=== PATIENT | female | born 1960 | race African-American/Black ===

== ENCOUNTER 2019-02-22 17:20 | Emergency (ER) | payer BC ==
[~2019-02-22] VITALS: Ht 160 cm; Wt 100.2 kg
[2019-02-22] MEDS ORDERED: BREO ELLIPTA 11 EACH INH (17:32)
[2019-02-22] MEDS ORDERED: PROAIR RESPICL90 MCG PO (17:32)
[2019-02-22] MEDS ORDERED: ALBUTEROL2.5 MG/31 INH (17:33)
[2019-02-22] MEDS ORDERED: PULMICORT0.5 MG/2 M INH (17:33)
[2019-02-22] MEDS ORDERED: FLONASE 0.05%50 MCG NASAL (17:34)
[2019-02-22] MEDS ORDERED: ASPIR 8181 MG PO (17:34)
[2019-02-22] MEDS ORDERED: KLOR-CON 1010 MEQ PO (17:34)
[2019-02-22] MEDS ORDERED: ZOCOR20 MG PO (17:34)
[2019-02-22] MEDS ORDERED: SINGULAIR 10 MG10 M1 PO (17:34)
[2019-02-22] MEDS ORDERED: IRON325 PO (17:35)
[2019-02-22] MEDS ORDERED: AMLODIPINE BESY10 MG PO (17:35)
[2019-02-22] MEDS ORDERED: DIOVAN160 MG PO (17:35)
[2019-02-22] MEDS ORDERED: LASIX 20 MG TAB20 MG PO (17:35)
[2019-02-22] MEDS ORDERED: PROTONIX40 M1 PO (17:35)
[2019-02-22] MEDS ORDERED: VITAMIN B-1250 MC2 PO (17:37)
[2019-02-22] MEDS ORDERED: BIOTIN1000 MCG PO (17:37)
[2019-02-22] MEDS ORDERED: VITAMINC500 PO (17:38)
[2019-02-22] MEDS ORDERED: VITAMIN D1000 UNI1 PO (17:38)
[2019-02-22] MEDS ORDERED: CALCIUM CARBON600 MG PO (17:39)
[2019-02-22] MEDS ORDERED: VITAMIN E1000 UNIT PO (17:39)
[2019-02-22] MEDS ORDERED: FISH OIL 1,001000 M2 PO (17:39)
[2019-02-22] MEDS ORDERED: IBUPROFEN 200200 M1 PO (17:40)
[2019-02-22] MEDS ORDERED: AZESCO TABLET1 EACH PO (17:40)
[2019-02-22] MEDS ORDERED: EXCEDRIN CAPLE1 EACH PO (17:40)
[2019-02-22 18:14] LABS: ABSOLUTE NEUTROPHILS 4.1 thou/uL (1.4-8.2); BASOPHILS 0.8 % (0.0-2.0); EOSINOPHILS 2.6 % (0.0-3.0); HEMATOCRIT 41.9 % (37.0-47.0); HEMOGLOBIN 14.2 gm/dL (12.0-15.0); LYMPHOCYTES 37.2 % (24.0-44.0); MCH 28.6 pg (26.0-34.0); MCHC 33.9 g/dL (28.0-37.0); MCV 84.4 fL (80.0-100.0); PLATELET COUNT 256 thou/uL (150-400); POLYS 50.4 % (36.0-66.0); RBC 4.97 mil/uL (4.20-5.00); RDW 13.3 % (10.5-14.5); WBC 8.2 thou/uL (4.0-11.0)
[2019-02-22 18:26] LABS: CALCIUM 9.5 mg/dL (8.5-10.1); POTASSIUM 3.9 mmol/L (3.5-5.1)
[2019-02-22 18:32] LABS: ALBUMIN 4.5 g/dL (3.4-5.0); TOTAL BILIRUBIN 0.3 mg/dL (<0.1-1.0); TOTAL PROTEIN 7.8 g/dL (6.4-8.2)
[2019-02-22 19:09] LABS: URINE BILIRUBIN NEGATIVE (Negative); URINE BLOOD 2+ (Negative); URINE CLARITY CLEAR; URINE COLOR YELLOW; URINE GLUCOSE-RANDOM* NEGATIVE (Negative); URINE KETONES NEGATIVE (Negative); URINE NITRITE-REFLEX NEGATIVE (Negative); URINE PROTEIN (DIPSTICK) NEGATIVE (Negative); URINE UROBILINOGEN 0.2 E.U./dl (0.2-1.0)
[2019-02-22 19:11] LABS: URINE LEUKOCYTES-REFLEX 1+ (Negative)
[2019-02-22 19:20] LABS: BACTERIA-REFLEX None Seen /HPF (None Seen); CASTS None Seen /LPF (None Seen); CRYSTALS None Seen /LPF (None Seen); MUCUS 0-3 Light strn/LPF (None Seen); SQUAMOUS 4-10 Moderate /LPF (0-3); URINE RBC 3-10 Few /HPF (0-2); URINE WBC-REFLEX 6-15 Few /HPF (0-5)
[2019-02-22] MEDS ORDERED: PREDNISONE 10 M10 MG PO (19:38)
[2019-02-22] MEDS ORDERED: NORFLEX100 MG PO (19:38)
[2019-02-22] MEDS ORDERED: ULTRAM 50MG TAB50 MG PO ×2 (19:51→19:52)
[2019-02-22 21:25] VITALS: BP 142/86
== END 2019-02-22 21:25 | disposition home or self-care (01) ==
LOC: ER 17:20
PROVIDERS: Physician Assistant
DX: S39.011A Strain of muscle, fascia and tendon of abdomen, initial encounter (principal); M65.28 Calcific tendinitis, other site; I10 Essential (primary) hypertension; K21.9 Gastro-esophageal reflux disease without esophagitis; G47.30 Sleep apnea, unspecified; Z88.6 Allergy status to analgesic agent; Z88.5 Allergy status to narcotic agent; X50.0XXA Overexertion from strenuous movement or load, initial encounter; Y92.89 Other specified places as the place of occurrence of the external cause; Y93.89 Activity, other specified; Y99.8 Other external cause status

== ENCOUNTER 2020-12-20 14:30 | Emergency (ER) | payer BC ==
[~2020-12-20] VITALS: Ht 160 cm; Wt 100.2 kg
[~2020-12-20 14:30] MED LIST: ALBUTEROL2.5 MG/31 INH; AMLODIPINE BESY10 MG PO; ASPIR 8181 MG PO; AZESCO TABLET1 EACH PO; BIOTIN1000 MCG PO; BREO ELLIPTA 11 EACH INH; CALCIUM CARBON600 MG PO; DIOVAN160 MG PO; EXCEDRIN CAPLE1 EACH PO; FISH OIL 1,001000 M2 PO; FLONASE 0.05%50 MCG NASAL; IBUPROFEN 200200 M1 PO; IRON325 PO; KLOR-CON 1010 MEQ PO; LASIX 20 MG TAB20 MG PO; NORFLEX100 MG PO; PREDNISONE 10 M10 MG PO; PROAIR RESPICL90 MCG PO; PROTONIX40 M1 PO; PULMICORT0.5 MG/2 M INH; SINGULAIR 10 MG10 M1 PO; ULTRAM 50MG TAB50 MG PO; VITAMIN B-1250 MC2 PO; VITAMIN D1000 UNI1 PO; VITAMIN E1000 UNIT PO; VITAMINC500 PO; ZOCOR20 MG PO
[2020-12-20 14:35] VITALS: BP 128/65
[2020-12-20] MEDS ORDERED: NORCO5 PO (15:17)
== END 2020-12-20 15:44 | disposition home or self-care (01) ==
LOC: ER 14:30
DX: S76.912A Strain of unspecified muscles, fascia and tendons at thigh level, left thigh, initial encounter (principal); I10 Essential (primary) hypertension; K21.9 Gastro-esophageal reflux disease without esophagitis; Z79.899 Other long term (current) drug therapy; Z79.82 Long term (current) use of aspirin; Z79.1 Long term (current) use of non-steroidal anti-inflammatories (NSAID); Z88.5 Allergy status to narcotic agent; W01.0XXA Fall on same level from slipping, tripping and stumbling without subsequent striking against object, initial encounter; Y93.89 Activity, other specified; Y92.89 Other specified places as the place of occurrence of the external cause; Y99.8 Other external cause status

== ENCOUNTER 2021-08-27 14:33 | Emergency (ER) | payer BC ==
[~2021-08-27] VITALS: Ht 160 cm; Wt 99.8 kg
[~2021-08-27 14:33] MED LIST changes: +NORCO5 PO
[2021-08-27 14:52] VITALS: BP 161/86
[2021-08-27] MEDS ORDERED: DIAZEPAM 5 MG5 M1 PO (15:30)
[2021-08-27] MEDS ORDERED: IBU600 MG PO (15:30)
[2021-08-27] MEDS ORDERED: NORCO5 PO (15:30)
--- NOTE | 2021-08-28 07:59 | EKG ---
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
== END 2021-08-27 15:41 | disposition home or self-care (01) ==
LOC: ER 14:33
DX: S46.812A Strain of other muscles, fascia and tendons at shoulder and upper arm level, left arm, initial encounter (principal); M79.602 Pain in left arm; I10 Essential (primary) hypertension; K21.9 Gastro-esophageal reflux disease without esophagitis; E11.9 Type 2 diabetes mellitus without complications; Z79.51 Long term (current) use of inhaled steroids; Z79.82 Long term (current) use of aspirin; Z79.1 Long term (current) use of non-steroidal anti-inflammatories (NSAID); Z79.891 Long term (current) use of opiate analgesic; Z79.899 Other long term (current) drug therapy; Z88.5 Allergy status to narcotic agent; Z88.6 Allergy status to analgesic agent; Z91.041 Radiographic dye allergy status; X50.0XXA Overexertion from strenuous movement or load, initial encounter; Y93.89 Activity, other specified; Y92.89 Other specified places as the place of occurrence of the external cause; Y99.8 Other external cause status